=== PATIENT | male | born 1960 | race Caucasian/White ===

== ENCOUNTER 2021-11-01 13:06 | Emergency (ER) | payer BC, SELFPAY ==
[~2021-11-01] VITALS: Ht 182.9 cm; Wt 200.0 kg
[2021-11-01] MEDS ORDERED: aspirin 81mg tab.chew PO ONE (13:10)
[2021-11-01 13:35] LABS: APTT 26 SECONDS (22-32)
[2021-11-01 13:37] LABS: ALANINE AMINOTRANSFERASE 28 U/L (12-78); ALBUMIN 4.4 G/DL (3.4-5.0); ALBUMIN/GLOBULIN RATIO 1.5 (1.1-1.5); ALKALINE PHOSPHATASE 60 IU/L (46-116); ANION GAP 9 (8-16); ASPARTATE AMINO TRANSFERASE 23 U/L (10-37); BILIRUBIN,TOTAL 1.5 MG/DL (0.1-1.0); BLOOD UREA NITROGEN 15 MG/DL (7-18); BUN/CREATININE RATIO 15.6 (5.4-32.0); CHLORIDE 103 MMOL/L (99-107); CREATININE 0.96 MG/DL (0.60-1.10); GLUCOSE 119 MG/DL (70-104); POTASSIUM 3.3 MMOL/L (3.5-5.1); SODIUM 141 MMOL/L (135-145); TOTAL CARBON DIOXIDE 29.5 MMOL/L (24-32); TOTAL PROTEIN 7.4 G/DL (6.4-8.2); eGFR 80 ML/MIN
[2021-11-01 13:39] LABS: D-DIMER < 0.19 MG/L FEU (0-0.50)
[2021-11-01 13:44] LABS: BASOPHILS % (AUTO) 0.5 % (0-1); EOSINOPHILS % (AUTO) 0.1 % (0-6); HEMATOCRIT 45.5 % (42.0-52.0); LYMPHOCYTES # (AUTO) 0.8 X10'3 (1.1-4.8); LYMPHOCYTES % (AUTO) 12.9 % (21-51); MEAN CORPUSCULAR HEMOGLOBIN 30.5 PG (27.0-31.0); MEAN CORPUSCULAR HGB CONC 35.3 g/dL (33.0-36.5); MEAN CORPUSCULAR VOLUME 86.3 FL (78-98); MEAN PLATELET VOLUME 8.6 FL (7.4-10.4); MONOCYTES # (AUTO) 0.4 X10'3 (0-0.9); MONOCYTES % (AUTO) 6.7 % (2-12); NEUTROPHILS # (AUTO) 5.3 X10'3 (1.8-7.7); NEUTROPHILS % (AUTO) 79.8 % (42-75); PLATELET COUNT 301 X10'3 (140-440); RED BLOOD COUNT 5.27 X10'6 (4.70-6.10); RED CELL DISTRIBUTION WIDTH 13.1 % (11.5-14.5); WHITE BLOOD COUNT 6.6 X10'3 (4.5-11.0)
[2021-11-01 13:45] LABS: LIPASE 84 U/L (73-393); MAGNESIUM 2.3 MG/DL (1.5-2.4)
[2021-11-01] MEDS ORDERED: LORA-269 PO (22:58)
[2021-11-01 23:12] VITALS: BP 136/90
== END 2021-11-01 23:14 | disposition home or self-care (01) ==
LOC: ER 13:06
DX: R07.89 Other chest pain (principal); R11.0 Nausea
CPT/HCPCS: 36415; 71045; 80053; 83690; 83735; 83880; 84484; 85025; 85379; 85610; 85730; 93005; 99285